=== PATIENT | male | born 1995 | race Hispanic/Latino ===

== ENCOUNTER 2018-12-19 09:27 | Emergency (ER) | payer OTHER ==
[~2018-12-19] VITALS: Ht 177.8 cm; Wt 65.8 kg
[2018-12-19] MEDS ORDERED: HYDROCODONE/APAP 5MG-325MG TAB ONE (09:54)
[2018-12-19] MEDS ORDERED: HYDROCODONE/APAP 5MG-325MG TAB PO PRN (10:00)
[2018-12-19] MEDS ORDERED: METOPROLOL SUCC50 MG PO (10:14)
[2018-12-19] MEDS ORDERED: HUMALOG100 UNIT/1 (10:14)
[2018-12-19] MEDS ORDERED: ZYRTEC10 MG (10:14)
[2018-12-19] MEDS ORDERED: LOSARTAN POTAS100 MG PO (10:14)
--- NOTE | 2018-12-19 11:33 | Diagnostic Imaging Report ---
Exam: Left foot 2 views Clinical History: Foreign body Findings: There is no evidence of acute fracture or malalignment. The articular joints are well-preserved. The soft tissue is unremarkable. No radiopaque foreign body noted. Impression: No radiographic evidence of acute osseous injury. Signed by: Dr. Arash Mcginnis MD on 12/19/2018 11:30 AM
--- NOTE | 2018-12-19 11:34 | Diagnostic Imaging Report ---
Exam: Left ankle 2 views Clinical History: Trauma Findings: There is no evidence of acute fracture or malalignment. The articular joints are well-preserved. Soft tissue defect is noted in the region posterior to the calcaneus without evidence of radiopaque foreign body. Impression: No radiographic evidence of acute osseous injury. Signed by: Dr. Arash Mcginnis MD on 12/19/2018 11:31 AM
[2018-12-19] MEDS ORDERED: TETANUS/DIPHTHERIA TOX ADULT 0.5 ML SYR ONE (11:53)
[2018-12-19 12:00] VITALS: BP 120/70
[2018-12-19] MEDS ORDERED: TETANUS/DIPHTHERIA TOX ADULT 0.5 ML SYR IM ONE (12:00)
[2018-12-19] MEDS ORDERED: LIDOCAINE 1% 5ML-MPF INJ ONE (12:00)
== END 2018-12-19 12:15 | disposition home or self-care (01) ==
LOC: FSED 09:27
DX: S91.012A Laceration without foreign body, left ankle, initial encounter (principal); W25.XXXA Contact with sharp glass, initial encounter; Y92.008 Other place in unspecified non-institutional (private) residence as the place of occurrence of the external cause
CPT/HCPCS: 90471; 90714; 96372; 99284